=== PATIENT | female | born 1960 | race Caucasian/White ===

== ENCOUNTER 2017-07-25 18:04 | Emergency (ER) | payer MEDICAID ==
[2017-07-25] MEDS: NICARDipine HCL 30 MG CAPSULE PO (18:51)
[2017-07-25] MEDS: MECLIZINE 12.5 MG TAB PO (18:51)
== END 2017-07-25 19:47 | disposition home or self-care (01) ==
LOC: E/R 18:04
DX: R42 Dizziness and giddiness (principal); R40.2142 Coma scale, eyes open, spontaneous, at arrival to emergency department; R40.2252 Coma scale, best verbal response, oriented, at arrival to emergency department; R40.2362 Coma scale, best motor response, obeys commands, at arrival to emergency department
CPT/HCPCS: 82962; 93005; 99283-25